=== PATIENT | female | born 1940 | race Caucasian/White ===

== ENCOUNTER 2018-07-06 11:07 | Emergency (ER) | payer MEDICARE, BC ==
[~2018-07-06] VITALS: Ht 160 cm; Wt 80.0 kg
[2018-07-06] MEDS ORDERED: FLUOXETINE10 M2 PO (11:29)
[2018-07-06] MEDS ORDERED: LISINOPRIL20 MG PO (11:30)
[2018-07-06] MEDS ORDERED: OMEPRAZOLE10 MG PO (11:33)
[2018-07-06] MEDS ORDERED: VOLTAREN - GENE75 MG PO (11:57)
[2018-07-06 12:07] VITALS: BP 159/89
== END 2018-07-06 12:20 | disposition home or self-care (01) ==
LOC: ED 11:07
DX: M17.12 Unilateral primary osteoarthritis, left knee (principal); I10 Essential (primary) hypertension; E78.5 Hyperlipidemia, unspecified; K21.9 Gastro-esophageal reflux disease without esophagitis

== ENCOUNTER 2021-08-15 13:42 | Emergency (ER) | payer MEDICARE ==
[~2021-08-15] VITALS: Ht 160 cm; Wt 72.3 kg
[~2021-08-15 13:42] MED LIST: FLUOXETINE10 M2 PO; LISINOPRIL20 MG PO; OMEPRAZOLE10 MG PO; VOLTAREN - GENE75 MG PO
[2021-08-15 15:12] LABS: URINE BILIRUBIN - DIPSTICK NEGATIVE (NEGATIVE); URINE BLOOD DIPSTICK NEGATIVE (NEGATIVE); URINE COLOR YELLOW; URINE GLUCOSE - DIPSTICK NEGATIVE (NEGATIVE); URINE KETONE NEGATIVE (NEGATIVE); URINE PROTEIN - DIPSTICK NEGATIVE (NEG-TRACE)
[2021-08-15 15:13] LABS: URINE LEUK ESTERASE SMALL (NEGATIVE); URINE NITRITE - DIPSTICK NEGATIVE (Negative)
[2021-08-15 15:18] LABS: URINE RBC 0-2 RBC/hpf (0-5); URINE SQUAMOUS EPITHELIAL CELL FEW EPI/hpf (0-FEW)
[2021-08-15 15:19] LABS: URINE BACTERIA MODERATE hpf
[2021-08-15] MEDS ORDERED: KEFLEX500 MG PO (15:32)
[2021-08-15 15:54] VITALS: BP 168/105
== END 2021-08-15 15:54 | disposition home or self-care (01) ==
LOC: ED 13:42
DX: N39.0 Urinary tract infection, site not specified (principal); I10 Essential (primary) hypertension; E78.5 Hyperlipidemia, unspecified; K21.9 Gastro-esophageal reflux disease without esophagitis; B96.20 Unspecified Escherichia coli [E. coli] as the cause of diseases classified elsewhere

== ENCOUNTER 2024-06-13 13:56 | Observation (INO) | payer MEDICARE ==
[2024-06-13] VITALS (29 sets, daily range): BP systolic 111–187; BP diastolic 58–99
[~2024-06-13] VITALS: Ht 160 cm; Wt 66.4 kg
[~2024-06-13 13:56] MED LIST changes: +KEFLEX500 MG PO
[2024-06-13 14:41] LABS: BASO% 0.1 % (0-3); EOS% 0.3 % (0-8); HEMATOCRIT 43.9 % (37.0-47.0); HEMOGLOBIN 14.1 g/dl (12.0-16.0); IMMATURE GRANULOCYTES 0.1 % (0.0-5.0); LYMPH% 13.6 % (15-41); MEAN CELL VOLUME 89.4 fL CALC (80.0-100.0); MEAN CORPUSCULAR HGB 28.7 pG CALC (26.0-32.0); MEAN CORPUSCULAR HGB CONC 32.1 g/dL CAL (32.0-36.0); NEUT# 5.72 thou/uL (2.00-7.15); NEUT% 80.9 % (42-76); RED BLOOD COUNT 4.91 mill/uL (4.20-5.60); RED CELL DISTRI WIDTH 14.2 % (11.5-15.5)
[2024-06-13 14:57] LABS: ALBUMIN 4.2 g/dL (3.2-5.0); ALKALINE PHOSPHATASE 86 u/l (38-126); ANION GAP 13 (6-22 (CALC)); BILIRUBIN, TOTAL 0.8 mg/dL (0.02-1.3); BUN 16 mg/dL (8-23); BUN/CREATININE RATIO 16 (12-20 (CALC)); CARBON DIOXIDE 26 mmol/l (22-30); CHLORIDE 104 mmol/l (95-108); CPK 42 u/l (30-135); ESTIMATED GFR 56 ML/MIN (>=90 (CALC)); POTASSIUM 3.9 mmol/l (3.5-5.1); SGOT/AST 27 u/l (9-36); SODIUM 139 mmol/l (137-146); TOTAL PROTEIN 7.1 g/dL (6.3-8.2)
[2024-06-13 16:54] LABS: URINE BILIRUBIN - DIPSTICK Negative (NEGATIVE); URINE BLOOD DIPSTICK Trace-intact (NEGATIVE); URINE GLUCOSE - DIPSTICK Negative (NEGATIVE); URINE KETONE 40 mg/dL (NEGATIVE); URINE NITRITE - DIPSTICK Negative (Negative); URINE PROTEIN - DIPSTICK Negative (NEG-TRACE); URINE SPECIFIC GRAVITY 1.015; URINE UROBILINOGEN - DIPSTICK 0.2 E.U./dL (0.2)
[2024-06-13 16:55] LABS: URINE COLOR Yellow; URINE LEUK ESTERASE Small (NEGATIVE)
[2024-06-13 17:03] LABS: URINE SQUAMOUS EPITHELIAL CELL FEW EPI/hpf (0-FEW)
[2024-06-13] MEDS ORDERED: KEFLEX500 MG PO (17:15)
[2024-06-13] MEDS ORDERED: PROBIOTI2 PO (17:15)
[2024-06-13] MEDS ORDERED: ASPIRIN 81 MG/TAB PO ONE (17:35)
[2024-06-13] MEDS ORDERED: ENOXAPARIN SODIUM 100 MG/ML SYR SC SCH (18:00)
[2024-06-13] MEDS ORDERED: DEXTROSE 250 ML IV PRN (18:00)
[2024-06-14] VITALS (8 sets, daily range): BP systolic 130–160; BP diastolic 63–74
[2024-06-14] MEDS ORDERED: PANTOPRAZOLE SODIUM Sesquihydr 40 MG/TAB PO SCH (09:00)
[2024-06-14] MEDS ORDERED: LISINOPRIL 20 MG/TAB PO SCH (09:00)
[2024-06-14] MEDS ORDERED: ONDANSETRON HCl 4 MG/2 ML SDV IV PRN (10:20)
[2024-06-14] MEDS ORDERED: amLODIPine BESYLATE 5 MG/TAB PO SCH (14:00)
[2024-06-14] MEDS ORDERED: SODIUM CHLORIDE 0.9% 1,000 ML IV SCH (14:30)
[2024-06-14] MEDS ORDERED: ENOXAPARIN SODIUM 80 MG/0.8 ML SYR SC SCH (21:00)
[2024-06-15] VITALS: BP 130/63
[2024-06-15 04:00] VITALS: BP 139/70
[2024-06-15] MEDS ORDERED: MORPHINE SULFATE 4 MG/ML VIAL IV ONE (04:00)
[2024-06-15] MEDS ORDERED: MORPHINE SULFATE 4 MG/ML VIAL IV SCH (04:00)
[2024-06-15 04:04] VITALS: BP 139/70
[2024-06-15 04:18] LABS: BASO% 0.5 % (0-3); EOS% 2.5 % (0-8); HEMATOCRIT 39.4 % (37.0-47.0); HEMOGLOBIN 12.9 g/dl (12.0-16.0); IMMATURE GRANULOCYTES 0.2 % (0.0-5.0); LYMPH% 35.4 % (15-41); MEAN CELL VOLUME 89.3 fL CALC (80.0-100.0); MEAN CORPUSCULAR HGB 29.3 pG CALC (26.0-32.0); MEAN CORPUSCULAR HGB CONC 32.7 g/dL CAL (32.0-36.0); MONO% 7.1 % (2-13); NEUT# 3.46 thou/uL (2.00-7.15); NEUT% 54.3 % (42-76); RED BLOOD COUNT 4.41 mill/uL (4.20-5.60); RED CELL DISTRI WIDTH 14.4 % (11.5-15.5)
[2024-06-15 04:32] LABS: MAGNESIUM 1.9 mg/dL (1.6-2.3)
[2024-06-15 04:38] LABS: ALBUMIN 3.2 g/dL (3.2-5.0); BILIRUBIN, TOTAL 0.4 mg/dL (0.02-1.3); TOTAL PROTEIN 5.6 g/dL (6.3-8.2)
[2024-06-15 06:51] VITALS: BP 151/71
[2024-06-15] MEDS ORDERED: ASPIRIN EC 81 MG/TAB PO SCH (10:00)
[2024-06-15] MEDS ORDERED: CLOPIDOGREL BISULFATE 75 MG/TAB TAB PO SCH (10:00)
[2024-06-15 10:45] VITALS: BP 141/70
[2024-06-15 11:36] LABS: CHOLESTEROL HDL RATIO 4.3 (<4.4 (CALC))
[2024-06-15] MEDS ORDERED: AMLODIPINE BESYL5 MG PO (15:10)
[2024-06-15] MEDS ORDERED: PLAVIX75 MG PO (15:10)
[2024-06-15] MEDS ORDERED: ATORVASTATIN CA40 MG PO (15:10)
[2024-06-15 15:34] VITALS: BP 133/71
[2024-06-15] MEDS ORDERED: ATORVASTATIN CALCIUM 40 MG/TAB PO SCH (21:00)
== END 2024-06-15 16:27 ==
LOC: ED 13:56 → ED-I 17:10 → ED 17:29 → MS2 17:30
PROVIDERS: Emergency Medicine; Nurse Practitioner Family; ADMIT Internal Medicine; ATTEND Internal Medicine
DX: I63.81 Other cerebral infarction due to occlusion or stenosis of small artery (principal); R53.1 Weakness; R27.0 Ataxia, unspecified; R29.700 NIHSS score 0; N39.0 Urinary tract infection, site not specified; I49.1 Atrial premature depolarization; I10 Essential (primary) hypertension; E78.5 Hyperlipidemia, unspecified; K21.9 Gastro-esophageal reflux disease without esophagitis; I45.10 Unspecified right bundle-branch block; F40.240 Claustrophobia; Z79.899 Other long term (current) drug therapy; Z20.822 Contact with and (suspected) exposure to COVID-19
CPT/HCPCS: J1650; Q9967